=== PATIENT | female | born 1950 | race Caucasian/White ===

== ENCOUNTER → 2017-02-12 | Outpatient (CLI) | payer MEDICARE, OTHER ==
[~2017-02-12] MED LIST: ASCORBIC ACID500 MG PO; B COMPLETE1 EACH PO; JOINT HEALTH T1 EACH PO; LEVOTHROID(SYN75 MCG PO; LIPITOR10 MG PO; LUMINEX PO; PRILOSEC20 MG PO; PRINIVIL (ZESTRI5 MG PO; REPLENEX PO; VIBE PO; VITAMIN D-40400 UNIT PO; ZESTRIL2.5 MG PO; [UNRECOGNIZED DRUG - OTHER] PO; [UNRECOGNIZED DRUG - OTHER] PO; [UNRECOGNIZED DRUG - OTHER] PO
== END | disposition disaster alternative care site (69) ==
LOC: LFPA 13:03
DX: M85.80 Other specified disorders of bone density and structure, unspecified site (principal)

== ENCOUNTER → 2017-02-19 | Outpatient (CLI) | payer MEDICARE, OTHER | END | disposition disaster alternative care site (69) | LOC: GBCOE 08:45 | DX: Z12.31 Encounter for screening mammogram for malignant neoplasm of breast (principal) | CPT/HCPCS: G0202 ==